=== PATIENT | male | born 1975 | race Caucasian/White ===

== ENCOUNTER → 2016-05-16 | Outpatient (REF) | payer OTHER, SELFPAY ==
[2016-05-16 12:17] LABS: MEAN CORPUSCULAR HEMOGLOBIN 32.1 pg (27.0-33.0); MEAN CORPUSCULAR HGB CONC 34.4 g/dl (32.0-36.5); MEAN CORPUSCULAR VOLUME 93.3 fl (80.0-96.0); PLATELET COUNT, AUTOMATED 227 k/mm3 (150-450); RED CELL DISTRIBUTION WIDTH 12.4 % (11.5-14.5)
[2016-05-16 12:36] LABS: ALBUMIN/GLOBULIN RATIO 1.29 (1.00-1.93); ALKALINE PHOSPHATASE 53 U/L (45-117); ALT/SGPT 20 U/L (12-78); ANION GAP 7 MEQ/L (8-16); AST/SGOT 13 U/L (15-37); BILIRUBIN,TOTAL 0.7 MG/DL (0.2-1.0); BLOOD UREA NITROGEN 10 MG/DL (7-18); CALCIUM LEVEL 8.7 MG/DL (8.5-10.1); CARBON DIOXIDE LEVEL 30 MEQ/L (21-32); CHLORIDE LEVEL 107 MEQ/L (98-107); CHOLESTEROL LEVEL 156 MG/DL (<200); CREATININE FOR GFR 0.97 MG/DL (0.70-1.30); GLOMERULAR FILTRATION RATE > 60.0 (>60); GLUCOSE, FASTING 94 MG/DL (70-105); POTASSIUM SERUM 4.1 MEQ/L (3.5-5.1); SODIUM LEVEL 144 MEQ/L (136-145); TOTAL PROTEIN 7.1 GM/DL (6.4-8.2); TRIGLYCERIDES LEVEL 74 MG/DL (<150)
== END ==
LOC: M LABDRAW1 11:36
PROVIDERS: ATTEND Physician Assistant
DX: Z51.81 Encounter for therapeutic drug level monitoring (principal); Z79.899 Other long term (current) drug therapy

== ENCOUNTER 2018-08-07 17:37 | Emergency (ER) | payer OTHER, SELFPAY ==
[~2018-08-07] VITALS: Ht 180.3 cm; Wt 95.5 kg
[2018-08-07] MEDS ORDERED: OMEP40CA2 (17:43)
[2018-08-07 19:03] LABS: BASO # 0.1 10^3/uL (0.0-0.2); BASO % 1.3 % (0.0-1.0); EOS # 0.3 10^3/uL (0.0-0.50); HEMATOCRIT 41.5 % (42.0-52.0); HEMOGLOBIN 14.3 g/dl (13.5-17.5); LYMPH % 26.6 % (24.0-44.0); MEAN CORPUSCULAR HGB CONC 34.5 g/dl (32.0-36.5); MEAN CORPUSCULAR VOLUME 92.8 fl (80.0-96.0); MONO # 0.3 10^3/uL (0.0-0.8); MONO % 4.4 % (0.0-5.0); NEUTROPHILS # 4.7 10^3/uL (1.8-7.7); NEUTROPHILS % 63.4 % (36.0-66.0); PLATELET COUNT, AUTOMATED 243 10^3/uL (150-450); RED BLOOD COUNT 4.47 10^6/uL (4.30-6.10); WHITE BLOOD COUNT 7.5 10^3/uL (4.0-10.0)
[2018-08-07 19:40] LABS: BLOOD UREA NITROGEN 8 MG/DL (7-18); CALCIUM LEVEL 8.5 MG/DL (8.5-10.1); CARBON DIOXIDE LEVEL 31 MEQ/L (21-32); CHLORIDE LEVEL 106 MEQ/L (98-107); CHOLESTEROL LEVEL 171 MG/DL (<200); CHOLESTEROL RISK RATIO 3.489 (<5); CPK CREATINE PHOSPHOKINASE 107 U/L (39-308); CREATININE FOR GFR 1.05 MG/DL (0.70-1.30); GLOMERULAR FILTRATION RATE > 60.0 (>60); GLUCOSE, FASTING 74 MG/DL (70-100); HDL CHOLESTEROL 49 MG/DL (>40); LDL CHOLESTEROL 92 MG/DL (<100); MB/CK RELATIVE INDEX 1.03 (< OR =4); NON-HDL-C 122 MG/DL; POTASSIUM SERUM 3.9 MEQ/L (3.5-5.1); SODIUM LEVEL 142 MEQ/L (136-145); TRIGLYCERIDES LEVEL 152 MG/DL (<150); TROPONIN I < 0.02 NG/ML (< 0.10)
[2018-08-07 19:41] LABS: TOTAL 25(OH) VITAMIN D 12.4 NG/ML (30.0-100.0)
--- NOTE | 2018-08-07 20:54 | REPVR ---
EXAM: MR Angiogram Head Without Contrast, Arteries EXAM DATE/TIME: 08/07/2018 7:49 PM CLINICAL HISTORY: 42 years old, male; Pain; Headache; Patient HX: H/a lt arm tingling; Additional info: Severe headache with left arm tingling TECHNIQUE: Imaging protocol: MR angiogram head without contrast. Exam focused on the arteries. 3D rendering: MIP reconstructed images were created and reviewed. COMPARISON: No relevant prior studies available. FINDINGS: Anterior circulation: Normal flow signal and luminal caliber in the petrous, cavernous and supraclinoid internal carotid arteries. Normal appearance of the anterior cerebral artery branches and middle cerebral artery branches through the MCA trifurcations. No occlusion, high-grade focal stenosis or dissection. No aneurysm. Posterior circulation: Normal distal vertebral arteries, with patent normal caliber basilar artery, and normal superior cerebellar and posterior cerebral arteries. No occlusion, high-grade stenosis or aneurysm. Bilateral P1 segments are diminutive and the normal caliber bilateral posterior cerebral arteries are supplied by posterior communicating arteries IMPRESSION: Unremarkable MR angiogram of the [place] and intracranial vertebrobasilar system. Electronically signed by: Prashanth Kaiser On 08/07/2018 20:53:48 PM
--- NOTE | 2018-08-07 20:58 | REPVR ---
EXAM: MR Head Without Contrast EXAM DATE/TIME: 08/07/2018 7:49 PM CLINICAL HISTORY: 42 years old, male; Pain; Headache; Migraine; Aura effect not specified; Does not respond to medication; Severity not specified; Patient HX: H/a lt arm tingling; Additional info: Severe headache with left arm tingling TECHNIQUE: Imaging protocol: MR of the head without contrast. COMPARISON: No relevant prior studies available. FINDINGS: No abnormal restriction of diffusion to indicate acute CVA. Midline structures and cerebellar tonsillar position appear normal. Ventricles, cisterns and sulci are symmetric and normal for age. No intracranial mass, midline shift or abnormal extra-axial fluid. No acute intracranial hemorrhage. Moderate pattern of increased T2 and flair signal in supratentorial white matter. Some of the lesions radiate peripherally from the callososeptal margin Optic chiasm and pituitary infundibulum appear normal. Normal vascular flow voids in major intracranial arteries and dural venous sinuses. Paranasal sinuses are clear. Mastoid air cells are normally aerated. Optic globes and orbits are unremarkable. IMPRESSION: Bilateral periventricular deep and subcortical white matter lesions some of which radiate peripherally from the callososeptal margin. This is concerning for a demyelination process such as multiple sclerosis. The differential diagnosis also includes chronic small vessel ischemia, although the distribution in this case is worrisome for MS Electronically signed by: Prashanth Kaiser On 08/07/2018 20:57:55 PM
[2018-08-07] MEDS ORDERED: methylPREDNISolone INJ 125 MG/2 ML VIAL (J2930) IV ONE (21:45)
[2018-08-07] MEDS ORDERED: methylPREDNISolone 1,000 MG, VIAL MATE ADAPTER 1 EACH in D5W 250 ML IV ONE (21:45)
[2018-08-07 21:59] VITALS: BP 148/110
--- NOTE | 2018-08-07 22:15 | ECGEPIP ---
Stationary ECG Study [facility] - ED Test Date: 2018-08-07 Pat Name: MANUEL CHEATHAM Department: Room: - Gender: M [employer] Analyst: PAPI : [id number] Requested By: RICKY Lazcano PA-C Order Number: [id number] Reading MD: Cristian Garcia Measurements Intervals [place] Rate: 54 P: 32 W[place]: 164 QRS: 4 QRSD: 110 T: 48 QT: 387 QTc: 370 Interpretive Statements SINUS BRADYCARDIA INCOMPLETE RIGHT BUNDLE BRANCH BLOCK NONSPECIFIC T-WAVE ABNORMALITY NO PRIORS FOR COMPARISON Electronically Signed On 08-07-2018 22:15:13 EDT by Cristian Garcia
--- NOTE | 2018-08-08 09:27 | ED PDOC ---
Post-Departure Follow-Up dr portillo and ino wade faxed formal report of mri brain for fu fredag Sophia Liu MD Aug 08, 2018 09:27
== END 2018-08-07 21:50 | disposition home or self-care (01) ==
LOC: M ED 17:37
DX: G35 Multiple sclerosis (principal)

== ENCOUNTER → 2018-08-10 | Outpatient (REF) | payer OTHER ==
[~2018-08-10] MED LIST: OMEP40CA2
[2018-08-10 14:04] LABS: ALBUMIN 4.2 GM/DL (3.2-5.2); ALT/SGPT 21 U/L (12-78); BLOOD UREA NITROGEN 8 MG/DL (7-18); CALCIUM LEVEL 8.8 MG/DL (8.5-10.1); CARBON DIOXIDE LEVEL 28 MEQ/L (21-32); CHLORIDE LEVEL 105 MEQ/L (98-107); CREATININE FOR GFR 1.05 MG/DL (0.70-1.30); FREE T4 1.29 NG/DL (0.76-1.46); GLOMERULAR FILTRATION RATE > 60.0 (>60); GLUCOSE, FASTING 93 MG/DL (70-100); POTASSIUM SERUM 4.1 MEQ/L (3.5-5.1); SODIUM LEVEL 140 MEQ/L (136-145); TOTAL PROTEIN 7.2 GM/DL (6.4-8.2)
== END ==
LOC: M LABDRAW1 12:40
PROVIDERS: ATTEND Physician Assistant
DX: R03.0 Elevated blood-pressure reading, without diagnosis of hypertension (principal); R79.89 Other specified abnormal findings of blood chemistry

== ENCOUNTER → 2018-08-14 | Outpatient (REF) | payer OTHER ==
[2018-08-14 14:05] LABS: RHEUMATOID FACTOR QUANT < 10.0 IU/ML (<15.0)
[2018-08-14 14:16] LABS: TOTAL 25(OH) VITAMIN D 10.9 NG/ML (30.0-100.0); VITAMIN B12 LEVEL 367 PG/ML (247-911)
[2018-08-14 14:17] LABS: FOLATE 7.9 NG/ML (>5.4)
== END ==
LOC: M LABNEURO 13:32
PROVIDERS: ATTEND Psychiatry & Neurology Neurology
DX: G35 Multiple sclerosis (principal)

== ENCOUNTER → 2018-10-16 | Outpatient (REF) | payer OTHER ==
[2018-10-16 17:41] LABS: BASO # 0.1 10^3/uL (0.0-0.2); BASO % 0.9 % (0.0-1.0); EOS # 0.2 10^3/uL (0.0-0.50); EOS % 2.3 % (0.0-3.0); HEMATOCRIT 39.8 % (42.0-52.0); HEMOGLOBIN 14.4 g/dl (13.5-17.5); LYMPH % 28.1 % (24.0-44.0); MEAN CORPUSCULAR HEMOGLOBIN 33.4 pg (27.0-33.0); MEAN CORPUSCULAR HGB CONC 36.2 g/dl (32.0-36.5); MEAN CORPUSCULAR VOLUME 92.3 fl (80.0-96.0); MONO # 0.3 10^3/uL (0.0-0.8); MONO % 4.6 % (0.0-5.0); NEUTROPHILS # 4.5 10^3/uL (1.8-7.7); NEUTROPHILS % 63.8 % (36.0-66.0); PLATELET COUNT, AUTOMATED 230 10^3/uL (150-450); RED BLOOD COUNT 4.31 10^6/uL (4.30-6.10)
[2018-10-16 18:12] LABS: ALBUMIN 3.9 GM/DL (3.2-5.2); ALT/SGPT 18 U/L (12-78); BILIRUBIN,TOTAL 1.4 MG/DL (0.2-1.0); BLOOD UREA NITROGEN 7 MG/DL (7-18); CALCIUM LEVEL 8.2 MG/DL (8.5-10.1); CARBON DIOXIDE LEVEL 26 MEQ/L (21-32); CHLORIDE LEVEL 106 MEQ/L (98-107); CREATININE FOR GFR 1.09 MG/DL (0.70-1.30); GLOMERULAR FILTRATION RATE > 60.0 (>60); GLUCOSE, FASTING 110 MG/DL (70-100); POTASSIUM SERUM 3.4 MEQ/L (3.5-5.1); SODIUM LEVEL 141 MEQ/L (136-145); TOTAL PROTEIN 7.4 GM/DL (6.4-8.2)
== END ==
LOC: M LABDRAW1 17:22
PROVIDERS: ATTEND Psychiatry & Neurology Neurology
DX: G35 Multiple sclerosis (principal)

== ENCOUNTER → 2018-11-12 | Outpatient (REF) | payer BC, OTHER ==
[2018-11-12 15:50] LABS: APPEARANCE, URINE CLEAR (CLEAR); BACTERIA, URINE AUTO NEGATIVE (NEGATIVE); BILIRUBIN, URINE AUTO NEGATIVE (NEGATIVE); BLOOD, URINE BLOOD NEGATIVE (NEGATIVE); COLOR, URINE YELLOW (YELLOW); GLUCOSE, URINE (UA) AUTO NEGATIVE (NEGATIVE); KETONE, URINE AUTO NEGATIVE (NEGATIVE); LEUKOCYTE ESTERASE, URINE AUTO NEGATIVE (NEGATIVE); NITRITE, URINE AUTO NEGATIVE (NEGATIVE); PROTEIN, URINE AUTO NEGATIVE (NEGATIVE); RBC, URINE AUTO 1 /HPF (0-3); SPECIFIC GRAVITY URINE AUTO 1.012 (1.002-1.035); SQUAMOUS EPITHELIAL CELL UR AU 0 /HPF (0-6); UROBILINOGEN, URINE AUTO 0.2 mg/dL (0.0-2.0); WBC, URINE AUTO 1 /HPF (0-3)
[2018-11-12 16:42] LABS: MALB URINE SIEMENS 8.4 MG/L; MAU/CREAT RATIO 7.7 MCG/MG (0.0-30.0)
== END ==
LOC: M SFHCPLAZ 13:36
PROVIDERS: ATTEND Family Medicine
DX: I10 Essential (primary) hypertension (principal)

== ENCOUNTER → 2019-01-29 | Outpatient (REF) | payer BC, OTHER ==
[2019-01-29 14:52] LABS: CHOLESTEROL RISK RATIO 3.955 (<5)
== END ==
LOC: M LABDRAW1 13:25
PROVIDERS: ATTEND Family Medicine
DX: Z13.220 Encounter for screening for lipoid disorders (principal)

== ENCOUNTER → 2019-03-29 | Outpatient (CLI) | payer OTHER ==
[~2019-03-29] MED LIST changes: -OMEP40CA2; +OMEP40CA97
--- NOTE | 2019-03-29 17:07 | REP ---
MRI brain: 03/29/2019. Indication: Multiple sclerosis. Comparison: 08/07/2018. Technique: Multiplanar short and long TR sequences of the brain were performed including post IV Gadolinium images. 20 ml ProHance were administered. Findings: There are no areas of restricted diffusion or pathologic gadolinium enhancement. There is no intracranial mass effect or hydrocephalous. No intracranial hemorrhage is detected. The large intracranial flow voids are unremarkable. Stable appearing foci of cerebral hemisphere white matter T2 prolongation are noted. No significant new signal abnormalities are present. There is no significant volume loss. The craniocervical junction is unremarkable. Impression: Findings consistent with the provided clinical diagnosis of multiple sclerosis. Stable compared to earlier this year. There is no MRI evidence of active demyelination or PML. Electronically Signed by Flavio Ruiz DO 03/29/2019 04:59 P
--- NOTE | 2019-03-29 17:10 | REP ---
MRI cervical spine: 03/29/2019. Indication: Multiple sclerosis. Comparison: None. Technique: Multiplanar short and long TR sequences of the cervical spine were performed including post-gadolinium imaging. 20 ml IV ProHance were administered. Findings: Image quality is somewhat degraded by patient motion. There is mild straightening of the cervical lordosis. No worrisome marrow signal is present. There is disc desiccation throughout. No abnormal cord signal is present. Diffuse disc osteophytes are present at C5/C6 and C6/C7 with mild effacement of the ventral thecal sac and moderate to severe bilateral neural foraminal narrowing in each level. The remaining disc levels are unremarkable with regard to spinal canal and neural foraminal narrowing. No focal disc herniations are present. Impression: There is no evidence of abnormal cord signal/multiple sclerosis involvement of the cervical spine. Degenerative sequelae most pronounced at C5/C6 and C6/C7 as described. Electronically Signed by Flavio Ruiz DO 03/29/2019 05:02 P
== END ==
LOC: M PLARAD 14:28
PROVIDERS: ATTEND Psychiatry & Neurology Neurology
DX: G35 Multiple sclerosis (principal)

== ENCOUNTER → 2020-06-30 | Outpatient (REF) | payer OTHER ==
[2020-06-30 16:21] LABS: BLOOD UREA NITROGEN 8 MG/DL (7-18); CALCIUM LEVEL 8.7 MG/DL (8.5-10.1); CARBON DIOXIDE LEVEL 32 MEQ/L (21-32); CHLORIDE LEVEL 100 MEQ/L (98-107); CREATININE FOR GFR 1.15 MG/DL (0.70-1.30); GLOMERULAR FILTRATION RATE > 60.0 (>60); GLUCOSE, FASTING 84 MG/DL (70-100); POTASSIUM SERUM 3.5 MEQ/L (3.5-5.1); SODIUM LEVEL 138 MEQ/L (136-145)
== END ==
LOC: M PLALAB 13:28
PROVIDERS: ATTEND Family Medicine
DX: I10 Essential (primary) hypertension (principal)

== ENCOUNTER → 2020-07-20 | Outpatient (CLI) | payer OTHER ==
[2020-07-20 17:39] LABS: BASO # 0.1 10^3/uL (0.0-0.2); BASO % 1.3 % (0.0-1.0); EOS # 0.3 10^3/uL (0.0-0.5); EOS % 4.3 % (0.0-3.0); HEMATOCRIT 43.6 % (42.0-52.0); HEMOGLOBIN 14.9 g/dl (13.5-17.5); LYMPH # 1.5 10^3/uL (1.5-5.0); LYMPH % 24.4 % (24.0-44.0); MEAN CORPUSCULAR HEMOGLOBIN 32.3 pg (27.0-33.0); MEAN CORPUSCULAR HGB CONC 34.2 g/dl (32.0-36.5); MEAN CORPUSCULAR VOLUME 94.4 fl (80.0-96.0); MONO # 0.4 10^3/uL (0.0-0.8); MONO % 5.8 % (2.0-8.0); PLATELET COUNT, AUTOMATED 260 10^3/uL (150-450); RED BLOOD COUNT 4.62 10^6/uL (4.30-6.10); WHITE BLOOD COUNT 6.2 10^3/uL (4.0-10.0)
[2020-07-20 18:14] LABS: ALBUMIN 4.5 GM/DL (3.2-5.2); BILIRUBIN,DIRECT 0.1 MG/DL (0.0-0.2); BILIRUBIN,TOTAL 0.5 MG/DL (0.2-1.0); TOTAL PROTEIN 7.9 GM/DL (6.4-8.2)
[2020-07-20 18:19] LABS: TOTAL 25(OH) VITAMIN D 73.1 NG/ML (30.0-100.0)
== END ==
LOC: M PLALAB 14:44
PROVIDERS: ATTEND Nurse Practitioner Family
DX: G35 Multiple sclerosis (principal)

== ENCOUNTER → 2020-08-14 | Outpatient (REF) | payer OTHER | LOC: M SFHCPLAZ 13:35 | PROVIDERS: ATTEND Family Medicine | DX: R39.11 Hesitancy of micturition (principal) ==

== ENCOUNTER → 2020-12-30 | Outpatient (CLI) | payer OTHER ==
[~2020-12-30] MED LIST changes: +OMEP40CA4; -OMEP40CA97; +PROHANCE 279.3MG/ML 15ML VIAL As Ordered ONE; +PROHANCE 279.3MG/ML 5ML VIAL As Ordered ONE
--- NOTE | 2020-12-30 21:39 | REPVR ---
PROCEDURE INFORMATION: Exam: MR Head Without and With Contrast Exam date and time: 12/30/2020 7:33 PM Age: 45 years old Clinical indication: Condition or disease; Multiple sclerosis; Patient HX: Ms TECHNIQUE: Imaging protocol: MR of the head without and with intravenous contrast. Contrast material: PROHANCE; Contrast volume: 19 ml; Contrast route: INTRAVENOUS (IV); COMPARISON: MRI-Brain W/O FOLL BY WITH 03/29/2019 3:13 PM FINDINGS: Brain: Multiple foci of T2 and FLAIR weighted increased signal in the periventricular, centrum semiovale and subcortical white matter unchanged in comparison to the prior study of 03/29/2019. One focus in the right periventricular region demonstrates restricted diffusion as noted previously. There is no abnormal enhancement on post gadolinium images. Cerebral ventricles: Normal. No ventriculomegaly. Bones/joints: Unremarkable. Paranasal sinuses: Normal as visualized. No acute sinusitis. Mastoid air cells: Normal as visualized. No mastoid effusion. Orbital cavity: Unremarkable. Soft tissues: Unremarkable. IMPRESSION: Multiple T2 FLAIR weighted foci of abnormal signal consistent with known history of multiple sclerosis. No significant interval change. Electronically signed by: You Mcclendon On 12/30/2020 21:39:03 PM
--- NOTE | 2020-12-30 21:43 | REPVR ---
PROCEDURE INFORMATION: Exam: MR Thoracic Spine Without and With Contrast Exam date and time: 12/30/2020 7:33 PM Age: 45 years old Clinical indication: Condition or disease; Other: Ms TECHNIQUE: Imaging protocol: Multiplanar magnetic resonance images of the thoracic spine without and with contrast. Contrast material: PROHANCE; Contrast volume: 19 ml; Contrast route: INTRAVENOUS (IV); COMPARISON: MRI-C SPINE W/O FOLL BY WITH 03/29/2019 3:13 PM FINDINGS: Vertebrae: Unremarkable. Spinal cord: Unremarkable. No mass. No abnormal enhancement. Discs/Spinal canal/Neural foramina: Right paracentral disc protrusion at T7-8 and T8-9 results in mild impingement of the right krista cord. No other significant disc disease. No significant spinal canal stenosis. Soft tissues: Unremarkable. IMPRESSION: Right paracentral disc protrusion at T7-8 and T8-9 results in mild impingement of the right krista cord. Electronically signed by: You Mcclendon On 12/30/2020 21:43:20 PM
--- NOTE | 2020-12-30 21:48 | REPVR ---
PROCEDURE INFORMATION: Exam: MR Cervical Spine Without and With Contrast Exam date and time: 12/30/2020 7:33 PM Age: 45 years old Clinical indication: Condition or disease; Other: Ms TECHNIQUE: Imaging protocol: Multiplanar magnetic resonance images of the cervical spine without and with contrast. Contrast material: PROHANCE; Contrast volume: 19 ml; Contrast route: INTRAVENOUS (IV); COMPARISON: MRI-C SPINE W/O FOLL BY WITH 03/29/2019 3:13 PM FINDINGS: Vertebrae: Unremarkable. Spinal cord: Small focus of T2 increased signal in the right lateral hemicord at the C3-C4 level. C2-C3: No significant disc disease. No significant spinal stenosis. C3-C4: Mild annular bulge at C3-C4 without cord impingement. Mild bilateral foraminal narrowing. C4-C5: Mild annular bulge at C4-C5 without significant effacement of ventral subarachnoid space. No cord impingement. [id number] bilateral foraminal stenosis. C5-C6: Broad posterior disc protrusion at C5-C6 effaces the ventral subarachnoid space with mild cord impingement. There is moderate to severe bilateral foraminal stenosis. C6-C7: Broad posterior disc protrusion at C6-C7 effaces the ventral subarachnoid space with minimal cord impingement. There is moderate to severe bilateral foraminal stenosis. C7-T1: No significant disc disease. No significant spinal stenosis. Soft tissues: Unremarkable. Vertebral arteries: Expected flow voids in the vertebral arteries. IMPRESSION: 1. Small focus of T2 increased signal in the right lateral hemicord at the C3-C4 level. Finding consistent with a small focus of demyelination. 2. Degenerative spondylosis with mild annular bulge at C3-C4 and C4-C5 and broad posterior disc protrusions at C5-C6 and C6-C7 with mild cord impingement. 3. Multilevel bilateral foraminal stenosis as described above. Electronically signed by: You Mcclendon On 12/30/2020 21:48:03 PM
== END ==
LOC: M RAD 16:08
PROVIDERS: ATTEND Nurse Practitioner Family
DX: G35 Multiple sclerosis (principal)

== ENCOUNTER → 2021-07-31 | Outpatient (CLI) | payer OTHER, BC ==
[~2021-07-31] MED LIST changes: -OMEP40CA4; +OMEP40CA4 PO; -PROHANCE 279.3MG/ML 15ML VIAL As Ordered ONE; -PROHANCE 279.3MG/ML 5ML VIAL As Ordered ONE; +TECF240C PO
== END ==
LOC: M LABSMTC 09:28
PROVIDERS: ATTEND Anesthesiology
DX: Z01.812 Encounter for preprocedural laboratory examination (principal); Z20.822 Contact with and (suspected) exposure to COVID-19

== ENCOUNTER 2021-08-05 10:08 | Day surgery (SDC) | payer BC ==
[~2021-08-05] VITALS: Ht 180.3 cm; Wt 98.0 kg
[~2021-08-05 10:08] MED LIST changes: +LIDOCAINE 2% 100MG/5ML SDV (FOR ANES.) As Ordered ONE; +NS 1,000 ML IV ONE; +fentaNYL 100 MCG/2 ML INJECTION As Ordered ONE; +propofoL 500 MG/50 ML VIAL As Ordered ONE
[2021-08-05] MEDS ORDERED: propofoL 200 MG/20 ML VIAL As Ordered ONE (12:06)
[2021-08-05 12:59] VITALS: BP 134/77
== END 2021-08-05 13:30 | disposition home or self-care (01) ==
LOC: M OPP 10:08
PROVIDERS: ATTEND Internal Medicine Gastroenterology
DX: Z12.11 Encounter for screening for malignant neoplasm of colon (principal); D12.6 Benign neoplasm of colon, unspecified; K64.8 Other hemorrhoids; K31.89 Other diseases of stomach and duodenum; K31.7 Polyp of stomach and duodenum; K22.89 Other specified disease of esophagus; R12 Heartburn; Z79.899 Other long term (current) drug therapy; Z88.2 Allergy status to sulfonamides; G35 Multiple sclerosis; Z87.891 Personal history of nicotine dependence
CPT/HCPCS: 43239; 43251; 45380; 88305; J3010

== ENCOUNTER → 2021-08-26 | Outpatient (CLI) | payer BC ==
[~2021-08-26] MED LIST changes: +GASTROGRAFIN SOLUTION 30ML (Q9963) As Ordered ONE; +ISOVUE-370 76% 100ML VIAL As Ordered ONE; -LIDOCAINE 2% 100MG/5ML SDV (FOR ANES.) As Ordered ONE; -NS 1,000 ML IV ONE; -fentaNYL 100 MCG/2 ML INJECTION As Ordered ONE; -propofoL 500 MG/50 ML VIAL As Ordered ONE
== END ==
LOC: M RAD 16:08
PROVIDERS: ATTEND Family Medicine
DX: R10.84 Generalized abdominal pain (principal)

== ENCOUNTER → 2021-08-27 | Outpatient (CLI) | payer BC ==
[~2021-08-27] MED LIST changes: -GASTROGRAFIN SOLUTION 30ML (Q9963) As Ordered ONE; -ISOVUE-370 76% 100ML VIAL As Ordered ONE
[2021-08-27 18:07] LABS: BASO # 0.1 10^3/uL (0.0-0.2); BASO % 1.5 % (0.0-1.0); EOS # 0.3 10^3/uL (0.0-0.5); HEMOGLOBIN 12.9 g/dl (13.5-17.5); LYMPH # 1.7 10^3/uL (1.5-5.0); LYMPH % 25.5 % (24.0-44.0); MEAN CORPUSCULAR HEMOGLOBIN 32.6 pg (27.0-33.0); MEAN CORPUSCULAR HGB CONC 33.9 g/dl (32.0-36.5); MONO # 0.5 10^3/uL (0.0-0.8); NEUTROPHILS % 60.7 % (36.0-66.0); PLATELET COUNT, AUTOMATED 252 10^3/uL (150-450); RED BLOOD COUNT 3.96 10^6/uL (4.30-6.10); WHITE BLOOD COUNT 6.6 10^3/uL (4.0-10.0)
[2021-08-27 18:26] LABS: ALBUMIN 4.2 GM/DL (3.2-5.2); ALT/SGPT 31 U/L (12-78); BILIRUBIN,TOTAL 0.4 MG/DL (0.2-1.0); BLOOD UREA NITROGEN 12 MG/DL (7-18); CALCIUM LEVEL 9.3 MG/DL (8.5-10.1); CARBON DIOXIDE LEVEL 30 MEQ/L (21-32); CHLORIDE LEVEL 107 MEQ/L (98-107); CREATININE FOR GFR 1.05 MG/DL (0.70-1.30); GLOMERULAR FILTRATION RATE > 60.0 (>60); GLUCOSE, FASTING 95 MG/DL (70-100); LIPASE 130 U/L (73-393); SODIUM LEVEL 141 MEQ/L (136-145)
== END ==
LOC: M PLALAB 14:55
PROVIDERS: ATTEND Family Medicine
DX: R10.10 Upper abdominal pain, unspecified (principal)

== ENCOUNTER → 2021-09-19 | Outpatient (CLI) | payer BC ==
[2021-09-19 16:33] LABS: HEMATOCRIT 38.5 % (42.0-52.0); HEMOGLOBIN 13.3 g/dl (13.5-17.5); MEAN CORPUSCULAR HEMOGLOBIN 32.5 pg (27.0-33.0); MEAN CORPUSCULAR HGB CONC 34.5 g/dl (32.0-36.5); MEAN CORPUSCULAR VOLUME 94.1 fl (80.0-96.0); PLATELET COUNT, AUTOMATED 246 10^3/uL (150-450); RED BLOOD COUNT 4.09 10^6/uL (4.30-6.10); WHITE BLOOD COUNT 5.6 10^3/uL (4.0-10.0)
[2021-09-19 16:35] LABS: HEMATOCRIT 38.5 % (42.0-52.0)
[2021-09-19 18:36] LABS: PERCENT SATURATION 29.4 % (19.7-50.0)
== END ==
LOC: M LAB 16:13
PROVIDERS: ATTEND Family Medicine
DX: D64.9 Anemia, unspecified (principal)

== ENCOUNTER → 2021-09-23 | Outpatient (REF) | payer BC ==
[2021-09-23 16:38] LABS: BASO # 0.1 10^3/uL (0.0-0.2); BASO % 1.6 % (0.0-1.0); EOS # 0.3 10^3/uL (0.0-0.5); EOS % 5.2 % (0.0-3.0); HEMATOCRIT 41.8 % (42.0-52.0); HEMOGLOBIN 14.3 g/dl (13.5-17.5); LYMPH # 1.6 10^3/uL (1.5-5.0); LYMPH % 28.8 % (24.0-44.0); MEAN CORPUSCULAR HEMOGLOBIN 32.3 pg (27.0-33.0); MEAN CORPUSCULAR HGB CONC 34.2 g/dl (32.0-36.5); MEAN CORPUSCULAR VOLUME 94.4 fl (80.0-96.0); MONO # 0.4 10^3/uL (0.0-0.8); MONO % 7.2 % (2.0-8.0); NEUTROPHILS # 3.2 10^3/uL (1.5-8.5); PLATELET COUNT, AUTOMATED 271 10^3/uL (150-450); RED BLOOD COUNT 4.43 10^6/uL (4.30-6.10); WHITE BLOOD COUNT 5.5 10^3/uL (4.0-10.0)
[2021-09-23 17:14] LABS: THYROID STIMULATING HORMONE 1.39 uIU/ML (0.358-3.740)
== END ==
LOC: M SFHCADAM 14:13
PROVIDERS: ATTEND Family Medicine
DX: R39.11 Hesitancy of micturition (principal); E55.9 Vitamin D deficiency, unspecified; D64.9 Anemia, unspecified; R68.89 Other general symptoms and signs

== ENCOUNTER → 2021-09-24 | Outpatient (CLI) | payer BC ==
[~2021-09-24] MED LIST changes: +ISOVUE-370 76% 100ML VIAL As Ordered ONE
== END ==
LOC: M RAD 17:01
PROVIDERS: ATTEND Family Medicine
DX: R93.89 Abnormal findings on diagnostic imaging of other specified body structures (principal)

== ENCOUNTER → 2021-11-18 | Outpatient (CLI) | payer BC ==
[~2021-11-18] MED LIST changes: -ISOVUE-370 76% 100ML VIAL As Ordered ONE; +VITA200028 PO
== END ==
LOC: M WUC 15:46
PROVIDERS: ATTEND Physician Assistant
DX: M79.644 Pain in right finger(s) (principal)

== ENCOUNTER → 2021-12-17 | Outpatient (CLI) | payer BC | LOC: M RAD 15:25 | PROVIDERS: ATTEND Physician Assistant | DX: R93.89 Abnormal findings on diagnostic imaging of other specified body structures (principal) ==

== ENCOUNTER → 2022-04-29 | Outpatient (CLI) | payer BC ==
[~2022-04-29] MED LIST changes: +DRON1CAP3 PO
[2022-04-29 15:17] LABS: BASO # 0.1 10^3/uL (0.0-0.2); BASO % 1.2 % (0.0-1.0); EOS # 0.3 10^3/uL (0.0-0.5); EOS % 4.7 % (0.0-3.0); HEMATOCRIT 40.4 % (42.0-52.0); HEMOGLOBIN 13.6 g/dl (13.5-17.5); LYMPH # 1.5 10^3/uL (1.5-5.0); LYMPH % 21.3 % (24.0-44.0); MEAN CORPUSCULAR HEMOGLOBIN 32.9 pg (27.0-33.0); MEAN CORPUSCULAR HGB CONC 33.7 g/dl (32.0-36.5); MEAN CORPUSCULAR VOLUME 97.6 fl (80.0-96.0); MONO # 0.4 10^3/uL (0.0-0.8); MONO % 5.1 % (2.0-8.0); NEUTROPHILS # 4.6 10^3/uL (1.5-8.5); NEUTROPHILS % 67.4 % (36.0-66.0); PLATELET COUNT, AUTOMATED 278 10^3/uL (150-450); RED BLOOD COUNT 4.14 10^6/uL (4.30-6.10); WHITE BLOOD COUNT 6.8 10^3/uL (4.0-10.0)
[2022-04-29 15:36] LABS: ERYTHROCYTE SEDIMENTATION RATE 3 mm/hr (0-15)
[2022-04-29 15:38] LABS: ALBUMIN 4.2 G/DL (3.2-5.2); ALKALINE PHOSPHATASE 45 U/L (46-116); ALT/SGPT 25 U/L (7.0-40); AST/SGOT 17 U/L (<34); BILIRUBIN,TOTAL 0.6 MG/DL (0.3-1.2); BLOOD UREA NITROGEN 11 MG/DL (9-23); C REACTIVE PROTEIN QUANTITATIV < 0.40 MG/DL (<1.0); CALCIUM LEVEL 8.9 MG/DL (8.5-10.1); CARBON DIOXIDE LEVEL 27 MMOL/L (20-31); CHLORIDE LEVEL 106 MMOL/L (98-107); CREATININE FOR GFR 0.99 MG/DL (0.70-1.30); GLOMERULAR FILTRATION RATE > 60.0 (>60); GLUCOSE, FASTING 88 MG/DL (60-100); POTASSIUM SERUM 4.6 MMOL/L (3.5-5.1); SODIUM LEVEL 141 MMOL/L (136-145); TOTAL PROTEIN 6.8 G/DL (5.7-8.2)
== END ==
LOC: M PLALAB 09:46
PROVIDERS: ATTEND Physician Assistant
DX: R10.9 Unspecified abdominal pain (principal)

== ENCOUNTER → 2022-05-05 | Outpatient (REF) | payer BC | LOC: M LAB REF 21:01 | PROVIDERS: ATTEND Physician Assistant | DX: B34.9 Viral infection, unspecified (principal) ==

== ENCOUNTER → 2022-05-27 | Outpatient (CLI) | payer BC | LOC: M SLEEP 20:00 | PROVIDERS: ATTEND Physician Assistant | DX: G47.33 Obstructive sleep apnea (adult) (pediatric) (principal) ==

== ENCOUNTER → 2023-02-10 | Outpatient (CLI) | payer BC ==
[~2023-02-10] MED LIST changes: +DRON10CA7 PO; -DRON1CAP3 PO
== END ==
LOC: M PLARAD 10:00
PROVIDERS: ATTEND Nurse Practitioner Family
DX: G35 Multiple sclerosis (principal); M47.892 Other spondylosis, cervical region; M48.02 Spinal stenosis, cervical region

== ENCOUNTER → 2023-03-10 | Outpatient (CLI) | payer BC ==
[~2023-03-10] MED LIST changes: +PROHANCE 279.3MG/ML 15ML VIAL As Ordered ONE; +PROHANCE 279.3MG/ML 5ML VIAL As Ordered ONE
== END ==
LOC: M RAD 09:35
PROVIDERS: ATTEND Nurse Practitioner Family
DX: G35 Multiple sclerosis (principal)

== ENCOUNTER → 2023-05-16 | Outpatient (CLI) | payer BC ==
[~2023-05-16] MED LIST changes: -PROHANCE 279.3MG/ML 15ML VIAL As Ordered ONE; -PROHANCE 279.3MG/ML 5ML VIAL As Ordered ONE
[2023-05-16 13:59] LABS: BASO # 0.1 10^3/uL (0.0-0.2); BASO % 0.8 % (0.0-1.0); EOS # 0.2 10^3/uL (0.0-0.5); EOS % 2.9 % (0.0-3.0); HEMOGLOBIN 14.2 g/dl (13.5-17.5); LYMPH # 0.6 10^3/uL (1.5-5.0); LYMPH % 7.5 % (24.0-44.0); MEAN CORPUSCULAR HGB CONC 33.8 g/dl (32.0-36.5); MEAN CORPUSCULAR VOLUME 94.6 fl (80.0-96.0); MONO # 0.6 10^3/uL (0.0-0.8); MONO % 7.5 % (2.0-8.0); NEUTROPHILS # 6.2 10^3/uL (1.5-8.5); PLATELET COUNT, AUTOMATED 208 10^3/uL (150-450); RED BLOOD COUNT 4.44 10^6/uL (4.30-6.10); WHITE BLOOD COUNT 7.7 10^3/uL (4.0-10.0)
[2023-05-16 14:08] LABS: ALBUMIN 4.4 G/DL (3.2-5.2); ALKALINE PHOSPHATASE 59 U/L (46-116); ALT/SGPT 19 U/L (7.0-40); AST/SGOT 13 U/L (<34); BILIRUBIN,TOTAL 1.1 MG/DL (0.3-1.2); BLOOD UREA NITROGEN 9 MG/DL (9-23); CALCIUM LEVEL 8.9 MG/DL (8.5-10.1); CARBON DIOXIDE LEVEL 30 MMOL/L (20-31); CHLORIDE LEVEL 106 MMOL/L (98-107); CREATININE FOR GFR 1.06 MG/DL (0.70-1.30); GLOMERULAR FILTRATION RATE > 60.0 (>60); GLUCOSE, FASTING 90 MG/DL (60-100); SODIUM LEVEL 139 MMOL/L (136-145); TOTAL PROTEIN 7.5 G/DL (5.7-8.2)
[2023-05-16 14:10] LABS: TOTAL 25(OH) VITAMIN D 65.5 NG/ML (20.0-100.0)
== END ==
LOC: M PLALAB 11:12
PROVIDERS: ATTEND Nurse Practitioner Family
DX: G35 Multiple sclerosis (principal)

== ENCOUNTER → 2023-06-06 | Outpatient (CLI) | payer BC ==
[~2023-06-06] MED LIST changes: +ISOVUE-370 76% 100ML VIAL ONE
== END ==
LOC: M PLAIMG 08:15
PROVIDERS: ATTEND Physician Assistant
DX: R93.89 Abnormal findings on diagnostic imaging of other specified body structures (principal)

== ENCOUNTER → 2023-06-14 | Outpatient (CLI) | payer BC ==
[~2023-06-14] MED LIST changes: -ISOVUE-370 76% 100ML VIAL ONE
[2023-06-14 14:50] LABS: PSA SCREENING 1.04 NG/ML (< 4.00)
[2023-06-14 14:56] LABS: ALBUMIN 3.9 G/DL (3.2-5.2); ALKALINE PHOSPHATASE 47 U/L (46-116); ALT/SGPT 21 U/L (7.0-40); AST/SGOT 12 U/L (<34); BILIRUBIN,TOTAL 0.5 MG/DL (0.3-1.2); BLOOD UREA NITROGEN 14 MG/DL (9-23); CALCIUM LEVEL 8.5 MG/DL (8.5-10.1); CARBON DIOXIDE LEVEL 29 MMOL/L (20-31); CHLORIDE LEVEL 108 MMOL/L (98-107); CHOLESTEROL LEVEL 179 MG/DL (<200); CHOLESTEROL RISK RATIO 3.74 (<5); CREATININE FOR GFR 1.05 MG/DL (0.70-1.30); GLOMERULAR FILTRATION RATE > 60.0 (>60); GLUCOSE, FASTING 88 MG/DL (60-100); HDL CHOLESTEROL 47.8 MG/DL (>40); LDL CHOLESTEROL 121.6 MG/DL (<100); NON-HDL-C 131.2 MG/DL; POTASSIUM SERUM 4.3 MMOL/L (3.5-5.1); SODIUM LEVEL 139 MMOL/L (136-145); TOTAL PROTEIN 6.8 G/DL (5.7-8.2); TRIGLYCERIDES LEVEL 48 MG/DL (<150)
[2023-06-14 14:57] LABS: TOTAL 25(OH) VITAMIN D 56.4 NG/ML (20.0-100.0)
[2023-06-14 14:58] LABS: VITAMIN B12 LEVEL 1052 PG/ML (211-911)
[2023-06-14 15:00] LABS: BASO # 0.1 10^3/uL (0.0-0.2); BASO % 1.1 % (0.0-1.0); EOS # 0.3 10^3/uL (0.0-0.5); EOS % 4.4 % (0.0-3.0); HEMATOCRIT 40.1 % (42.0-52.0); HEMOGLOBIN 13.4 g/dl (13.5-17.5); LYMPH # 1.8 10^3/uL (1.5-5.0); LYMPH % 24.5 % (24.0-44.0); MEAN CORPUSCULAR HEMOGLOBIN 32.1 pg (27.0-33.0); MEAN CORPUSCULAR HGB CONC 33.4 g/dl (32.0-36.5); MEAN CORPUSCULAR VOLUME 95.9 fl (80.0-96.0); MONO # 0.3 10^3/uL (0.0-0.8); MONO % 4.7 % (2.0-8.0); NEUTROPHILS # 4.7 10^3/uL (1.5-8.5); PLATELET COUNT, AUTOMATED 248 10^3/uL (150-450); RED BLOOD COUNT 4.18 10^6/uL (4.30-6.10); WHITE BLOOD COUNT 7.2 10^3/uL (4.0-10.0)
== END ==
LOC: M PLALAB 10:09
PROVIDERS: ATTEND Physician Assistant
DX: I10 Essential (primary) hypertension (principal)

== ENCOUNTER → 2024-01-11 | Outpatient (CLI) | payer BC ==
[2024-01-11 13:47] LABS: BASO # 0.1 10^3/uL (0.0-0.2); BASO % 1.7 % (0.0-1.0); EOS # 0.4 10^3/uL (0.0-0.5); EOS % 5.3 % (0.0-3.0); HEMATOCRIT 42.1 % (42.0-52.0); HEMOGLOBIN 14.3 g/dl (13.5-17.5); LYMPH # 1.6 10^3/uL (1.5-5.0); LYMPH % 24.7 % (24.0-44.0); MEAN CORPUSCULAR VOLUME 94.2 fl (80.0-96.0); MONO # 0.4 10^3/uL (0.0-0.8); MONO % 5.8 % (2.0-8.0); NEUTROPHILS # 4.1 10^3/uL (1.5-8.5); NEUTROPHILS % 62.3 % (36.0-66.0); PLATELET COUNT, AUTOMATED 250 10^3/uL (150-450); RED BLOOD COUNT 4.47 10^6/uL (4.30-6.10); WHITE BLOOD COUNT 6.6 10^3/uL (4.0-10.0)
[2024-01-11 14:18] LABS: ALBUMIN 4.1 G/DL (3.2-5.2); ALKALINE PHOSPHATASE 53 U/L (46-116); ALT/SGPT 16 U/L (7.0-40); AST/SGOT 10 U/L (<34); BILIRUBIN,TOTAL 0.7 MG/DL (0.3-1.2); BLOOD UREA NITROGEN 9 MG/DL (9-23); CALCIUM LEVEL 9.1 MG/DL (8.5-10.1); CARBON DIOXIDE LEVEL 29 MMOL/L (20-31); CHLORIDE LEVEL 109 MMOL/L (98-107); CHOLESTEROL LEVEL 176 MG/DL (<200); CHOLESTEROL RISK RATIO 4.51 (<5); GLOMERULAR FILTRATION RATE > 60.0 (>56); GLUCOSE, FASTING 79 MG/DL (60-100); LDL CHOLESTEROL 119.8 MG/DL (<100); POTASSIUM SERUM 4.4 MMOL/L (3.5-5.1); SODIUM LEVEL 141 MMOL/L (136-145); TOTAL PROTEIN 6.9 G/DL (5.7-8.2); TRIGLYCERIDES LEVEL 86 MG/DL (<150)
[2024-01-11 14:25] LABS: TOTAL 25(OH) VITAMIN D 59.7 NG/ML (20.0-100.0)
[2024-01-11 14:26] LABS: VITAMIN B12 LEVEL 729 PG/ML (211-911)
== END ==
LOC: M PLALAB 09:46
PROVIDERS: ATTEND Physician Assistant
DX: I10 Essential (primary) hypertension (principal)

== ENCOUNTER → 2024-01-17 | Outpatient (CLI) | payer BC ==
[~2024-01-17] MED LIST changes: +ISOVUE-370 76% 100ML VIAL As Ordered ONE
== END ==
LOC: M RAD 08:33
PROVIDERS: ATTEND Physician Assistant
DX: R91.8 Other nonspecific abnormal finding of lung field (principal)
CPT/HCPCS: 71260; Q9967

== ENCOUNTER 2024-06-20 13:12 | Emergency (ER) | payer BC ==
[~2024-06-20] VITALS: Ht 180.3 cm; Wt 99.3 kg
[~2024-06-20 13:12] MED LIST changes: -ISOVUE-370 76% 100ML VIAL As Ordered ONE
[2024-06-20 13:14] VITALS: BP 134/86; TEMP 96.8; O2SAT 100
== END 2024-06-20 15:21 | disposition home or self-care (01) ==
LOC: M ED 13:12
DX: S16.1XXA Strain of muscle, fascia and tendon at neck level, initial encounter (principal); Y92.9 Unspecified place or not applicable; Y93.9 Activity, unspecified; Y99.9 Unspecified external cause status; F41.9 Anxiety disorder, unspecified; Z88.2 Allergy status to sulfonamides; Z79.899 Other long term (current) drug therapy

== ENCOUNTER → 2024-06-27 | Outpatient (CLI) | payer BC ==
[2024-06-27 12:01] LABS: HEMATOCRIT 40.2 % (42.0-52.0); HEMOGLOBIN 14.2 g/dl (13.5-17.5); MEAN CORPUSCULAR HEMOGLOBIN 32.9 pg (27.0-33.0); MEAN CORPUSCULAR HGB CONC 35.3 g/dl (32.0-36.5); MEAN CORPUSCULAR VOLUME 93.3 fl (80.0-96.0); PLATELET COUNT, AUTOMATED 250 10^3/uL (150-450); RED BLOOD COUNT 4.31 10^6/uL (4.30-6.10); WHITE BLOOD COUNT 6.5 10^3/uL (4.0-10.0)
[2024-06-27 12:41] LABS: ALBUMIN 3.9 G/DL (3.2-5.2); ALKALINE PHOSPHATASE 48 U/L (40-129); ALT/SGPT 21 U/L (7.0-40); AST/SGOT 14 U/L (<34); BILIRUBIN,TOTAL 0.7 MG/DL (0.3-1.2); BLOOD UREA NITROGEN 14 MG/DL (9-23); CALCIUM LEVEL 9.1 MG/DL (8.5-10.1); CARBON DIOXIDE LEVEL 30 MMOL/L (20-31); CHLORIDE LEVEL 105 MMOL/L (98-107); CHOLESTEROL LEVEL 178 MG/DL (<200); CHOLESTEROL RISK RATIO 3.77 (<5); CREATININE FOR GFR 1.11 MG/DL (0.70-1.30); GLOMERULAR FILTRATION RATE > 60.0 (>56); GLUCOSE, FASTING 84 MG/DL (60-100); HDL CHOLESTEROL 47.2 MG/DL (>40); LDL CHOLESTEROL 119.4 MG/DL (<100); MAGNESIUM LEVEL 1.8 MG/DL (1.8-2.4); NON-HDL-C 130.8 MG/DL; POTASSIUM SERUM 4.8 MMOL/L (3.5-5.1); PSA SCREENING 0.94 NG/ML (< 4.00); SODIUM LEVEL 141 MMOL/L (136-145); TOTAL PROTEIN 7.2 G/DL (5.7-8.2); TRIGLYCERIDES LEVEL 57 MG/DL (<150)
== END ==
LOC: M LAB 10:23
PROVIDERS: ATTEND Nurse Practitioner Family
DX: Z13.220 Encounter for screening for lipoid disorders (principal)

== ENCOUNTER → 2025-02-25 | Outpatient (CLI) | payer BC ==
[~2025-02-25] MED LIST changes: -DRON10CA7 PO; +DRON10CA8 PO
== END ==
LOC: M PLALAB 07:15
PROVIDERS: ATTEND Nurse Practitioner Family
DX: S30.871A Other superficial bite of abdominal wall, initial encounter (principal); W57.XXXA Bitten or stung by nonvenomous insect and other nonvenomous arthropods, initial encounter; Y92.9 Unspecified place or not applicable; Y93.9 Activity, unspecified; Y99.9 Unspecified external cause status

== ENCOUNTER 2025-04-18 15:00 | Emergency (ER) | payer OTHER, BC ==
[~2025-04-18] VITALS: Ht 180.3 cm; Wt 99.8 kg
[2025-04-18] MEDS ORDERED: KP F1200 PO (15:10)
[2025-04-18 15:31] LABS: BASO # 0.1 10^3/uL (0.0-0.2); BASO % 1.1 % (0.0-1.0); EOS # 0.3 10^3/uL (0.0-0.5); EOS % 3.3 % (0.0-3.0); LYMPH # 1.6 10^3/uL (1.5-5.0); LYMPH % 19.7 % (24.0-44.0); MONO # 0.4 10^3/uL (0.0-0.8); MONO % 4.4 % (2.0-8.0); NEUTROPHILS # 5.6 10^3/uL (1.5-8.5); NEUTROPHILS % 71.4 % (36.0-66.0); PLATELET COUNT, AUTOMATED 255 10^3/uL (150-450)
[2025-04-18 16:00] LABS: ALT/SGPT 22.0 U/L (7.0-40); AST/SGOT 18.0 U/L (<34); CALCIUM LEVEL 9.3 MG/DL (8.5-10.1); CARBON DIOXIDE LEVEL 32.0 MMOL/L (20-31); CHLORIDE LEVEL 105.0 MMOL/L (98-107); CREATININE FOR GFR 1.05 MG/DL (0.70-1.30); GLOMERULAR FILTRATION RATE 85.9 (>56); POTASSIUM SERUM 4.3 MMOL/L (3.5-5.1); SODIUM LEVEL 143.0 MMOL/L (136-145)
[2025-04-18] MEDS ORDERED: ISOVUE-370 76% 100 ML VIAL As Ordered ONE (18:13)
[2025-04-18 19:00] VITALS: BP 134/91; TEMP 97
[2025-04-18] MEDS ORDERED: PRED10TA2 PO (19:01)
[2025-04-18 19:09] VITALS: O2SAT 98
== END 2025-04-18 19:21 | disposition home or self-care (01) ==
LOC: M ED 15:00
DX: K52.9 Noninfective gastroenteritis and colitis, unspecified (principal); R91.8 Other nonspecific abnormal finding of lung field; R10.9 Unspecified abdominal pain; Z88.2 Allergy status to sulfonamides; Z79.52 Long term (current) use of systemic steroids; Z79.810 Long term (current) use of selective estrogen receptor modulators (SERMs)
CPT/HCPCS: 36415; 74177; 80048; 80076; 83690; 85025; 99284; Q9967